=== PATIENT | female | born 1950 | race Caucasian/White ===

== ENCOUNTER 2017-12-18 17:08 | Inpatient (IN) | payer MEDICARE, OTHER ==
[~2017-12-18] VITALS: Ht 157.5 cm; Wt 66.0 kg
[2017-12-18 17:16] VITALS: BP 163/125; PULSE 77; RESP 22; TEMP 98.2; O2SAT 97
[2017-12-18] MEDS ORDERED: SODIUM CHLOR 0.9% 1000 ML INJ 1,000 ML IV ONE (18:00)
--- NOTE | 2017-12-18 18:00 | PD ---
HPI Chief Complaint: Cold / Flu Symptoms Time Seen by Provider: 17:27 Travel History International Travel<30 days: No Contact w/Intl Traveler<30days: No Traveled to known affect area: No History of Present Illness HPI Patient is a 67-year-old female with history of multiple sclerosis, hypertension , diabetes, hyperlipidemia, nicotine dependence, presents the emergency room for evaluation of cough, chills, shortness of breath with MS exacerbation. Patient reports that for the past 11 days, she has had a productive cough with thick white mucus. Denies any fevers. Patient reports that she has been having intermittent chills as well as shortness of breath with her coughing. Patient reports that since the onset of her symptoms, she has been feeling weak , reports that at baseline, she is a walker to walk. Patient reports that she is unable to ambulate with a walker and has to use a wheelchair at this time. Patient reports that she did fall multiple times at home due to her weakness. Patient denies any trauma to her head or neck, denies any loss of consciousness. Patient reports that she has been having problems with swallowing. Patient did follow-up with Dr. Fish today and was instructed to go to the emergency room for evaluation of her symptoms as well as MS exacerbation secondary to infection. Patient is currently taking Rebif for her MS exacerbation. Patient's neurologist: Dr. Leigh [facility] Past Medical History Narrative Medical Past medical history significant for essential hypertension, prediabetes, nicotine dependence, atrophy of thyroid, major depressive disorder, multiple sclerosis, spondylolysis with radiculopathy thoracic region, menopause, hyperlipidemia, solitary pulmonary nodule ?: Unknown Past Surgical History Narrative Surgical Past surgical history significant for colonoscopy, breast reduction, breast augmentation, tonsillectomy Family History Family Breast Cancer: Yes Social History Alcohol Use: No Tobacco Use: No Substance Use: No Allergies-Medications (Allergen,Severity, Reaction): Coded Allergies: No Known Allergies (Unverified , 12/18/17) Review of Systems General / Constitutional: Positive: Chills, No: Fever Eyes: No: Visual changes HENT: No: Headaches Cardiovascular: No: Chest Pain or Discomfort Respiratory: Positive: Cough, Shortness of Breath Gastrointestinal: No: Abdominal Pain Genitourinary: No: Dysuria Musculoskeletal: Positive: Weakness, No: Pain Skin: No Rash Neurologic: Positive: Weakness Psychiatric: No: Depression Endocrine: No: Polydipsia Hematologic/Lymphatic: No: Easy Bruising Physical Exam Narrative GENERAL: Moderate distress SKIN: Focused skin assessment warm/dry. HEAD: Atraumatic. Normocephalic. EYES: Pupils equal and round. No scleral icterus. No injection or drainage. ENT: No nasal bleeding or discharge. Mucous membranes pink and moist. NECK: Trachea midline. No JVD. CARDIOVASCULAR: Regular rate and rhythm. No murmur appreciated. RESPIRATORY: No accessory muscle use. Clear to auscultation. Breath sounds equal bilaterally. GASTROINTESTINAL: Abdomen soft, non-tender, nondistended. Hepatic and splenic margins not palpable. MUSCULOSKELETAL: No obvious deformities. No clubbing. No cyanosis. No edema. Patient with weakness to the lower extremities NEUROLOGICAL: Awake and alert. No obvious cranial nerve deficits. Normal speech. PSYCHIATRIC: Appropriate mood and affect; insight and judgment normal. Data Data Last Documented VS Vital Signs Date Time Temp Pulse Resp B/P (MAP) Pulse Ox O2 Delivery O2 Flow Rate FiO2 12/18/17 18:08 18 97 Room Air 12/18/17 18:08 66 148/101 (117) 12/18/17 17:16 98.2 Orders Orders Electrocardiogram (12/18/17 17:47) Complete Blood Count With Diff (12/18/17 17:47) Comprehensive Metabolic Panel (12/18/17 17:47) Influenzae A/B Antigen (12/18/17 17:47) Urinalysis - C+S If Indicated (12/18/17 17:47) Blood Culture (12/18/17 17:47) Chest, Single Ap (12/18/17 17:47) Ecg Monitoring (12/18/17 17:47) Iv Access Insert/Monitor (12/18/17 17:47) Oximetry (12/18/17 17:47) Sodium Chlor 0.9% 1000 Ml Inj (Ns 1000 M (12/18/17 18:00) Methylprednisolone So Succ Inj (Solumedr (12/18/17 18:45) Consult Neurology (12/18/17 ) Mri Brain W&W/O Contrast (12/18/17 ) (Hub Use Only)Inp Phy Cons/Ref (12/18/17 ) Admit Order (Ed Use Only) (12/18/17 18:59) Labs Laboratory Tests Test 12/18/17 17:50 12/18/17 18:00 White Blood Count 7.5 TH/MM3 Red Blood Count 4.44 MIL/MM3 Hemoglobin 13.3 GM/DL Hematocrit 40.0 % Mean Corpuscular Volume 90.1 FL Mean Corpuscular Hemoglobin 30.0 PG Mean Corpuscular Hemoglobin Concent 33.3 % Red Cell Distribution Width 13.5 % Platelet Count 178 TH/MM3 Mean Platelet Volume 10.0 FL Neutrophils (%) (Auto) 73.1 % Lymphocytes (%) (Auto) 16.8 % Monocytes (%) (Auto) 7.7 % Eosinophils (%) (Auto) 1.4 % Basophils (%) (Auto) 1.0 % Neutrophils # (Auto) 5.4 TH/MM3 Lymphocytes # (Auto) 1.3 TH/MM3 Monocytes # (Auto) 0.6 TH/MM3 Eosinophils # (Auto) 0.1 TH/MM3 Basophils # (Auto) 0.1 TH/MM3 CBC Comment DIFF FINAL Differential Comment Blood Urea Nitrogen 27 MG/DL Creatinine 0.83 MG/DL Random Glucose 75 MG/DL Total Protein 7.1 GM/DL Albumin 3.5 GM/DL Calcium Level 9.1 MG/DL Alkaline Phosphatase 90 U/L Aspartate Amino Transf (AST/SGOT) 21 U/L Alanine Aminotransferase (ALT/SGPT) 28 U/L Total Bilirubin 0.4 MG/DL Sodium Level 144 MEQ/L Potassium Level 3.6 MEQ/L Chloride Level 107 MEQ/L Carbon Dioxide Level 26.9 MEQ/L Anion Gap 10 MEQ/L Estimat Glomerular Filtration Rate 68 ML/MIN Urine Color [place] Urine Turbidity CLEAR Urine pH 6.0 Urine Specific [place] 1.023 Urine Protein NEG mg/dL Urine Glucose (UA) NEG mg/dL Urine Ketones TRACE mg/dL Urine Occult Blood NEG Urine Nitrite NEG Urine Bilirubin NEG Urine Urobilinogen 2.0 mg/dL Urine Leukocyte Esterase NEG Urine WBC 1 /hpf Urine Hyaline Casts 3 /lpf Urine Mucus FEW /lpf Microscopic Urinalysis Comment CULT NOT INDICATED MDM Medical Decision Making Medical Screen Exam Complete: Yes Emergency Medical Condition: Yes Medical Record Reviewed: Yes Interpretation(s) Vital Signs Date Time Temp Pulse Resp B/P (MAP) Pulse Ox O2 Delivery O2 Flow Rate FiO2 12/18/17 17:16 98.2 77 22 163/125 (138) 97 Differential Diagnosis Pneumonia, bronchitis, MS exacerbation, influenza, viral syndrome, electrolyte abnormality Narrative Course During the course of the patients emergency department visit, the patients history, examination, and differential diagnosis were reviewed with the patient. The patient was placed on a truck caterer with oximetry and frequent blood pressure monitoring. The patient had an IV access obtained and blood work sent for analysis. The patient was initially provided IV fluids. A call was made to Dr. Leigh, patient's neurologist. He is unavailable, call made to a neurologist applications project manager. The patients laboratory studies were reviewed and remarkable for CBC & BMP Diagram 12/18/17 17:50 Total Protein 7.1, Albumin 3.5, Calcium Level 9.1, Alkaline Phosphatase 90, Aspartate Amino Transf (AST/SGOT) 21, Alanine Aminotransferase (ALT/SGPT) 28, Total Bilirubin 0.4 Radiology studies were reviewed and remarkable for Last Impressions Chest X-Ray 12/18/17 2207 Signed Impressions: CONCLUSION: Advanced thoracic scoliosis. No acute cardiopulmonary findings. Case reviewed with Dr. Andre, recommends IV Solu-Medrol 250 mg every 6 hours, requests brain MRI with and without IV contrast. Patient will be admitted to the hospital at this time for MS exacerbation with bronchitis. case reviewed with Dr. Toscano who accepts pt to her service Diagnosis Primary Impression: Multiple sclerosis exacerbation Admitting Information Admitting Physician Requests: Admit Loli Pool DO Dec 18, 2017 18:00
[2017-12-18 18:07] VITALS: O2SAT 98
[2017-12-18 18:08] VITALS: BP 148/101; PULSE 66; RESP 18; O2SAT 97
[2017-12-18 18:18] LABS: AUTOMATED NEUTROPHIL # 5.4 TH/MM3 (1.8-7.7); BASOPHIL # 0.1 TH/MM3 (0-0.2); EOSINOPHIL # 0.1 TH/MM3 (0-0.4); EOSINOPHIL % 1.4 % (0.0-4.0); HEMOGLOBIN 13.3 GM/DL (11.6-15.3); LYMPH % 16.8 % (9.0-44.0); LYMPHOCYTE # 1.3 TH/MM3 (1.0-4.8); MEAN CELL VOLUME 90.1 FL (80.0-100.0); MEAN CORPUSCULAR HGB CONC 33.3 % (32.0-36.0); MONO % 7.7 % (0.0-8.0); MONOCYTE # 0.6 TH/MM3 (0-0.9); NEUT % 73.1 % (16.0-70.0); PLATELET COUNT 178 TH/MM3 (150-450); RED BLOOD COUNT 4.44 MIL/MM3 (4.00-5.30); RED CELL DISTRIBUTION WIDTH 13.5 % (11.6-17.2); WHITE BLOOD COUNT 7.5 TH/MM3 (4.0-11.0)
--- NOTE | 2017-12-18 18:36 | RADRPT ---
EXAM DATE: 12/18/2017 6:29 PM EDT AGE/SEX: 67 years / Female INDICATIONS: Cough. CLINICAL DATA: This is the patient's initial encounter. Patient reports that signs and symptoms have been present for 2 weeks and indicates a pain score of 2/10. MEDICAL/SURGICAL HISTORY: Multiple sclerosis. None. COMPARISON: No prior exams available for comparison. FINDINGS: The cardiac and mediastinal contours are within normal limits. The lungs are clear. There is a rotato ry scoliosis of the thoracic spine. CONCLUSION: Advanced thoracic scoliosis. No acute cardiopulmonary findings. Electronically signed by: Polo Bates MD 12/18/2017 6:34 PM EDT
[2017-12-18 18:41] LABS: ALT (GPT) 28 U/L (10-53)
[2017-12-18 18:42] LABS: ALBUMIN 3.5 GM/DL (3.4-5.0); AST (GOT) 21 U/L (15-37); BICARBONATE 26.9 MEQ/L (21.0-32.0); BLOOD UREA NITROGEN 27 MG/DL (7-18); CALCIUM 9.1 MG/DL (8.5-10.1); CHLORIDE 107 MEQ/L (98-107); CREATININE 0.83 MG/DL (0.50-1.00); GLOMERULAR FILTRATION RATE 68 ML/MIN (>89); GLUCOSE,RANDOM 75 MG/DL (74-106); SODIUM (NA) 144 MEQ/L (136-145)
[2017-12-18 18:43] LABS: ALKALINE PHOSPHATASE 90 U/L (45-117); TOTAL BILIRUBIN ADULT 0.4 MG/DL (0.2-1.0); TOTAL PROTEIN 7.1 GM/DL (6.4-8.2)
[2017-12-18 18:44] LABS: BILIRUBIN, URINE NEG (NEG); BLOOD, URINE NEG (NEG); GLUCOSE,URINE NEG (NEG); HYALINE CAST, URINE 3 /lpf (RARE); KETONE, URINE TRACE mg/dL (NEG); MUCUS URINE FEW /lpf (OCC); NITRITE,URINE NEG (NEG); URINE COLOR Amber (YELLW/STRAW); URINE LEUKOCYTE ESTERASE NEG (NEG)
[2017-12-18] MEDS ORDERED: methylPREDNISolone SOD SUCC 125 MG/2 ML VIAL IV PUSH ONE (18:45)
[2017-12-18] MEDS ORDERED: GADODIAMIDE PF 287 MG/ML 5 ML VIAL (for RAD MRI) IVCONTRAST ONE (19:38)
--- NOTE | 2017-12-18 20:18 | RADRPT ---
EXAM DATE: 12/18/2017 7:53 PM EDT AGE/SEX: 67 years / Female INDICATIONS: . MS exacerbation, possible mass. CLINICAL DATA: This is the patient's initial encounter. Patient reports that signs and symptoms have been present for 1 week and indicates a pain score of 4/10. MEDICAL/SURGICAL HISTORY: Multiple sclerosis. Hypertension. Tonsillectomy. COMPARISON: No prior exams available for comparison. TECHNIQUE: Multiplanar, multisequence examination of the brain was performed without and with 13 ml O mniscan (gadodiamide) contrast as a single exam dose. FINDINGS: Cerebrum: The ventricles are normal for age. No evidence of midline shift, mass lesion, hemorrhage or acute infarction. There are punctate areas of old lacunar infarct seen in the white matter adjacen t to the ventricular system bilaterally. No extraaxial fluid collections are seen. The pituitary gl and and suprasellar cistern are normal in configuration. White Matter: There is increased T2 signal in the periventricular white matter consistent with the p atient's known diagnosis of MS. There are punctate areas of old lacunar infarct within the white vijay er probably representing old plaques as well. No enhancing lesion is seen. No findings to indicate ac donna cortical infarction are present. Posterior Fossa: The cerebellum and brainstem are intact. The 4th ventricle is midline. The cerebel lopontine angle is unremarkable. The cerebellar tonsils are normal in position. Diffusion Imaging: No focal areas of restricted diffusion are seen. No evidence of acute infarction . Extracranial: The visualized portions of the orbits and paranasal sinuses are unremarkable. Post Contrast: No abnormal areas of parenchymal or dural enhancement. No evidence of blood-brain ba rrier breakdown. CONCLUSION: 1. T2 signal in the periventricular white matter consistent with the patient's known diagnosis of MS . 2. No enhancing plaques identified. No findings to indicate acute infarct are present. 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 Electronically signed by: Polo Bates MD 12/18/2017 8:17 PM EDT
--- NOTE | 2017-12-18 20:26 | HHI.HP ---
HPI Service [facility] Primary Care Physician Itz Fish MD Admission Diagnosis MS Exacerbation Diagnoses: Travel History International Travel<30 Days: No Contact w/Intl Traveler <30 Da: No Traveled to Known Affected Are: No History of Present Illness 67-year-old female with a past medical history significant for multiple sclerosis presents the emergency department for the evaluation of a cough 11 days. The patient reports that approximately 11 days ago she started having a nonproductive cough with intermittent chills and sweats. She was seen by her primary care provider who prescribed her cough syrup which she states did not work and a Z-Conrad which she completed. The patient started noticing increasing, sudden onset weakness approximately 1-1/2 weeks ago. She reports that she has fallen 4 times in the past 1-1/2 weeks. She states her weakness is steadily worsening and she is no longer able to walk with her walker and is now forced to use a wheelchair. She denies any chest pain or shortness of breath. No abdominal pain. No nausea/vomiting/diarrhea. No lateralizing signs/symptoms. Review of Systems Except as stated in HPI: all other systems reviewed are Neg Past Family Social History Past Medical History Multiple sclerosis Past Surgical History Breast augmentation Breast implant removal Tonsillectomy Allergies: Coded Allergies: No Known Allergies (Unverified , 12/18/17) Family History Father with diabetes mellitus and coronary artery disease Social History Denies tobacco and illicit drugs. Occasional alcohol. Physical Exam Vital Signs Vital Signs Date Time Temp Pulse Resp B/P (MAP) Pulse Ox O2 Delivery O2 Flow Rate FiO2 12/18/17 18:08 18 97 Room Air 12/18/17 18:08 66 18 148/101 (117) 97 Room Air 12/18/17 18:07 98 Room Air 12/18/17 17:16 98.2 77 22 163/125 (138) 97 Physical Exam GENERAL: female lying in bed SKIN: No rashes, ecchymoses or lesions. Cool and dry. HEAD: Atraumatic. Normocephalic. No temporal or scalp tenderness. EYES: Pupils equal round and reactive. Extraocular motions intact. No scleral icterus. No injection or drainage. ENT: Nose without bleeding, purulent drainage or septal hematoma. Throat without erythema, tonsillar hypertrophy or exudate. Uvula midline. Airway patent. NECK: Trachea midline. No JVD or lymphadenopathy. Supple, nontender, no meningeal signs. CARDIOVASCULAR: Regular rate and rhythm without murmurs, gallops, or rubs. RESPIRATORY: Clear to auscultation. Breath sounds equal bilaterally. No wheezes , rales, or rhonchi. GASTROINTESTINAL: Abdomen soft, non-tender, nondistended. No hepato-splenomegaly , or palpable masses. No guarding. MUSCULOSKELETAL: Extremities without clubbing, cyanosis, or edema. No joint tenderness, effusion, or edema noted. No calf tenderness. NEUROLOGICAL: Awake and alert. Cranial nerves II through XII intact. Normal speech. Hand oracle bpm developer and upper extremity strength 5/5. Right lower extremity strength 3/5, unable to lift left lower extremity off the bed. Laboratory Laboratory Tests Test 12/18/17 17:50 12/18/17 18:00 White Blood Count 7.5 Red Blood Count 4.44 Hemoglobin 13.3 Hematocrit 40.0 Mean Corpuscular Volume 90.1 Mean Corpuscular Hemoglobin 30.0 Mean Corpuscular Hemoglobin Concent 33.3 Red Cell Distribution Width 13.5 Platelet Count 178 Mean Platelet Volume 10.0 Neutrophils (%) (Auto) 73.1 Lymphocytes (%) (Auto) 16.8 Monocytes (%) (Auto) 7.7 Eosinophils (%) (Auto) 1.4 Basophils (%) (Auto) 1.0 Neutrophils # (Auto) 5.4 Lymphocytes # (Auto) 1.3 Monocytes # (Auto) 0.6 Eosinophils # (Auto) 0.1 Basophils # (Auto) 0.1 CBC Comment DIFF FINAL Differential Comment Blood Urea Nitrogen 27 Creatinine 0.83 Random Glucose 75 Total Protein 7.1 Albumin 3.5 Calcium Level 9.1 Alkaline Phosphatase 90 Aspartate Amino Transf (AST/SGOT) 21 Alanine Aminotransferase (ALT/SGPT) 28 Total Bilirubin 0.4 Sodium Level 144 Potassium Level 3.6 Chloride Level 107 Carbon Dioxide Level 26.9 Anion Gap 10 Estimat Glomerular Filtration Rate 68 Urine Color [place] Urine Turbidity CLEAR Urine pH 6.0 Urine Specific [place] 1.023 Urine Protein NEG Urine Glucose (UA) NEG Urine Ketones TRACE Urine Occult Blood NEG Urine Nitrite NEG Urine Bilirubin NEG Urine Urobilinogen 2.0 Urine Leukocyte Esterase NEG Urine WBC 1 Urine Hyaline Casts 3 Urine Mucus FEW Microscopic Urinalysis Comment CULT NOT INDICATED Date/Time Source Procedure Growth Status 12/18/17 17:55 Blood Peripheral Aerobic Blood Culture Pending Received 12/18/17 17:55 Blood Peripheral Anaerobic Blood Culture Pending Received 12/18/17 17:50 Nasal Washing Influenza Types A,B Antigen (ELIN) - Final NEGATIVE FOR FLU A AND B ANTIGEN.... Complete Result Diagram: 12/18/17 17512/18/17 175 Caprini VTE Risk Assessment Caprini VTE Risk Assessment: Mod/High Risk (score >= 2) Caprini Risk Assessment Model Point Value = 1 Point Value = 2 Point Value = 3 Point Value = 5 Age 41-60 Minor surgery BMI > 25 kg/m2 Swollen legs Varicose veins or History of unexplained or recurrent spontaneous Oral contraceptives or hormone replacement Sepsis (< 1 month) Serious lung disease, including pneumonia (< 1 month) Abnormal pulmonary function Acute myocardial infarction Congestive heart failure (< 1 month) History of inflammatory bowel disease Medical patient at bed rest Age 61-74 Arthroscopic surgery Major open surgery (> 45 min) Laparoscopic surgery (> 45 min) Malignancy Confined to bed (> 72 hours) Immobilizing plaster cast Central venous access Age >= 75 History of VTE Family history of VTE Factor V Leiden Prothrombin [id number] Lupus anticoagulant Anticardiolipin antibodies Elevated serum homocysteine Heparin-induced thrombocytopenia Other congenital or acquired thrombophilia Stroke (< 1 month) Elective arthroplasty Hip, pelvis, or leg fracture Acute spinal cord injury (< 1 month) Prophylaxis Regimen Total Risk Factor Score Risk Level Prophylaxis Regimen 0-1 Low Early ambulation 2 Moderate Order ONE of the following: *Sequential Compression Device (SCD) *Heparin 5000 units SQ BID 3-4 Higher Order ONE of the following medications: *Heparin 5000 units SQ TID *Enoxaparin/Lovenox 40 mg SQ daily (WT < 150 kg, CrCl > 30 mL/min) *Enoxaparin/Lovenox 30 mg SQ daily (WT < 150 kg, CrCl > 10-29 mL/min) *Enoxaparin/Lovenox 30 mg SQ BID (WT < 150 kg, CrCl > 30 mL/min) AND/OR *Sequential Compression Device (SCD) 5 or more Highest Order ONE of the following medications: *Heparin 5000 units SQ TID (Preferred with Epidurals) *Enoxaparin/Lovenox 40 mg SQ daily (WT < 150 kg, CrCl > 30 mL/min) *Enoxaparin/Lovenox 30 mg SQ daily (WT < 150 kg, CrCl > 10-29 mL/min) *Enoxaparin/Lovenox 30 mg SQ BID (WT < 150 kg, CrCl > 30 mL/min) AND *Sequential Compression Device (SCD) Assessment and Plan Assessment and Plan Assessment/plan: 1. MS exacerbation Patient with sudden onset increasing weakness Neurology consulted, appreciate recommendations Solu-Medrol 250 mg every 6 hours per neurology recommendations MRI pending 2. Cough Patient without leukocytosis Suspect viral in origin Chest x-ray without acute process, personally reviewed FEN Heart healthy diet Electrolytes: Monitor and replete as needed Heparin Physician Certification 2 Midnight Certification Type: Admission for Inpatient Services Order for Inpatient Services The services are ordered in accordance with Medicare regulations or non- Medicare payer requirements, as applicable. In the case of services not specified as inpatient-only, they are appropriately provided as inpatient services in accordance with the 2-midnight benchmark. Estimated LOS (days): 2 2 days is the estimated time the patient will need to remain in the hospital, assuming treatment plan goals are met and no additional complications. Post-Hospital Plan: Not yet determined Loli Toscano MD Dec 18, 2017 20:25
[2017-12-18] MEDS ORDERED: ONDANSETRON HCL 4 MG/2 ML VIAL IVP PRN (20:30)
[2017-12-18] MEDS ORDERED: SODIUM CHLORIDE 0.9% FLUSH 10 ML FLUSH IV FLUSH PRN (20:30)
[2017-12-18] MEDS ORDERED: MAGNESIUM HYDROXIDE SUSP 30 ML CUP PO PRN (20:30)
[2017-12-18] MEDS ORDERED: ACETAMINOPHEN 325 MG TAB PO PRN (20:30)
[2017-12-18] MEDS ORDERED: LACTULOSE SYRUP 20 GM/30 ML CUP PO PRN (20:30)
[2017-12-18] MEDS ORDERED: NALOXONE HCL 0.4 MG/ML AMP IV PUSH PRN (20:30)
[2017-12-18] MEDS ORDERED: SENNOSIDES 8.6 MG TAB PO PRN (20:30)
[2017-12-18] MEDS ORDERED: BISACODYL 10 MG SUPP RECTAL PRN (20:30)
[2017-12-18] MEDS: SODIUM CHLORIDE 0.9% FLUSH 10 ML FLUSH IV FLUSH SCH (21:09)
[2017-12-18] MEDS: DOCUSATE SODIUM 50 MG/SENNA 8.6 MG TAB PO SCH (21:10)
[2017-12-18] MEDS: HEPARIN SODIUM - SQ 10,000 UNITS/ML VIAL SQ SCH (21:10)
[2017-12-18] MEDS: methylPREDNISolone SOD SUCC 125 MG/2 ML VIAL IV SCH ×2 (21:11→23:16)
[2017-12-19] VITALS: BP 128/81; PULSE 77; RESP 17; TEMP 98.2; O2SAT 97
[2017-12-19 04:30] VITALS: BP 172/80; PULSE 74; RESP 17; TEMP 97.6; O2SAT 97
[2017-12-19] MEDS: methylPREDNISolone SOD SUCC 125 MG/2 ML VIAL IV SCH ×3 (05:48→17:47)
[2017-12-19 08:00] VITALS: BP 187/89; PULSE 73; RESP 18; TEMP 97.5; O2SAT 97
[2017-12-19 08:30] LABS: AUTOMATED NEUTROPHIL # 5.1 TH/MM3 (1.8-7.7); BASOPHIL % 0.2 % (0.0-2.0); HEMATOCRIT 38.4 % (35.0-46.0); HEMOGLOBIN 12.8 GM/DL (11.6-15.3); LYMPH % 14.5 % (9.0-44.0); LYMPHOCYTE # 0.9 TH/MM3 (1.0-4.8); MEAN CELL VOLUME 89.2 FL (80.0-100.0); MEAN CORPUSCULAR HEMOGLOBIN 29.7 PG (27.0-34.0); MEAN CORPUSCULAR HGB CONC 33.3 % (32.0-36.0); MEAN PLATELET VOLUME 10.5 FL (7.0-11.0); MONO % 0.6 % (0.0-8.0); NEUT % 84.7 % (16.0-70.0); PLATELET COUNT 159 TH/MM3 (150-450); RED CELL DISTRIBUTION WIDTH 13.2 % (11.6-17.2)
[2017-12-19 08:53] LABS: BICARBONATE 22.7 MEQ/L (21.0-32.0); CALCIUM 8.8 MG/DL (8.5-10.1); CREATININE 0.73 MG/DL (0.50-1.00)
[2017-12-19] MEDS: DOCUSATE SODIUM 50 MG/SENNA 8.6 MG TAB PO SCH ×2 (09:12→21:11)
[2017-12-19] MEDS: HEPARIN SODIUM - SQ 10,000 UNITS/ML VIAL SQ SCH ×2 (09:13→21:10)
[2017-12-19] MEDS: SODIUM CHLORIDE 0.9% FLUSH 10 ML FLUSH IV FLUSH SCH ×2 (09:16→21:11)
--- NOTE | 2017-12-19 11:01 | MB ---
cc: Cecily Chaney MD DATE: 12/19/2017 REASON FOR CONSULTATION: MS Exacerbation. HISTORY OF PRESENT ILLNESS: This is a very pleasant 67-year-old woman, patient of Dr. Leigh, as well as Dr. Fish, her primary care with a history of MS for a number of years currently on Rebif therapy. She developed some type of cough, started having some chills and sweats and started noticing that she was having more weakness in the legs for the last week and a half had fallen. Uses a walker, but is having more trouble and had to go to a wheelchair. My associate, Dr. Andre, was called last night and recommended starting her on Solu-Medrol 250 mg q. 6 hours. She has done fairly well in the past she states with the Solu-Medrol. PAST MEDICAL HISTORY: As stated. PAST SURGICAL HISTORY: Tonsillectomy, breast augmentation and implant removal. ALLERGIES: NONE REPORTED. FAMILY HISTORY: Diabetes and heart disease. SOCIAL HISTORY: . Occasional alcohol. No drugs. PHYSICAL EXAMINATION: VITAL SIGNS: Temperature 97.5, pulse 73, respiratory rate 18, blood pressure is elevated at 187/89 this morning, saturating 97 percent. NECK: Supple. HEART: Regular. NEUROLOGIC: She is awake, alert, fluent. Pupils are reactive. No afferent pupillary defect. Extraocular muscles are normal. Visual dubois are full. Face symmetrical. Tongue midline. Normal speech. Motor molina, upper extremities slightly weaker in the appeals court associate justice bilaterally, but proximally intact. Both extremities, the right lower extremity, she can lift to antigravity. She is at best 3+ to 4-/5 on the right, 3 on the left. No clonus. Both toes are upgoing. Sensory is intact. Brisk reflexes. No Mihir sign. Cerebellar normal. Gait is withheld at this time. LABORATORY DATA: Reviewed. Her CBC is really unremarkable. Chemistries: Potassium 3.4, GFR 79, glucose 155. Urine, no culture is indicated. Chest x-ray: No acute pulmonary findings. She had MRI of the brain with and without contrast shows periventricular white matter disease consistent with MS diagnosis. No enhancing plaques. No acute stroke. Old punctate lacune in the white matter bilaterally periventricularly. IMPRESSION: Probable MS exacerbation may be viral etiology something not exacerbated. As far as or upper respiratory infection, may caused an exacerbation; however, given her symptoms, I agree to go ahead and continue Solu-Medrol for a course of 3 days, have PT, OT assessed her and certainly let her continue her Rebif therapy. She has the medication with her and there is no contraindication that she cannot use it while she is getting steroids and possibly needing to go to rehabilitation is certainly a consideration given her weakness. Continue current care. Thank you for allowing me to participate in her care. Cecily Chaney MD DF/DL , 10:31 AM , 10:59 AM
[2017-12-19 12:00] VITALS: BP 124/78; PULSE 75; RESP 18; TEMP 98; O2SAT 94
[2017-12-19] MEDS ORDERED: PANTOPRAZOLE SOD 40 MG DELAYED RELEASE TAB PO ONE (13:45)
--- NOTE | 2017-12-19 13:52 | HHI.PR ---
Subjective Remarks 67-year-old female with a past medical history significant for multiple sclerosis presents the emergency department for the evaluation of a cough 11 days. The patient reports that approximately 11 days ago she started having a nonproductive cough with intermittent chills and sweats. She was seen by her primary care provider who prescribed her cough syrup which she states did not work and a Z-Conrad which she completed. The patient started noticing increasing, sudden onset weakness approximately 1-1/2 weeks ago. She reports that she has fallen 4 times in the past 1-1/2 weeks. She states her weakness is steadily worsening and she is no longer able to walk with her walker and is now forced to use a wheelchair. She denies any chest pain or shortness of breath. No abdominal pain. No nausea/vomiting/diarrhea. No lateralizing signs/symptoms. 12-[address] TERRELL HAS BEEN GIVEN IV STEROIDS DW RN AND PT AND CM PT AND OT AM LABS Objective Vitals Vital Signs Date Time Temp Pulse Resp B/P (MAP) Pulse Ox O2 Delivery O2 Flow Rate FiO2 12/19/17 08:00 97.5 73 18 187/89 (121) 97 12/19/17 04:30 97.6 74 17 172/80 (110) 97 12/19/17 00:00 98.2 77 17 128/81 (97) 97 12/18/17 22:53 12/18/17 18:08 18 97 Room Air 12/18/17 18:08 66 18 148/101 (117) 97 Room Air 12/18/17 18:07 98 Room Air 12/18/17 17:16 98.2 77 22 163/125 (138) 97 I/O 12/18/17 12/18/17 12/18/17 12/19/17 12/19/17 12/19/17 07:00 15:00 23:00 07:00 15:00 23:00 Intake Total 1000 ml 360 ml Balance 1000 ml 360 ml Intake Oral 360 ml IV Total 1000 ml # Voids 3 # Bowel Movements 0 Result Diagram: 12/19/17 0543 12/19/17 0543 Other Results Laboratory Tests Test 12/18/17 17:50 12/18/17 18:00 12/19/17 05:43 White Blood Count 7.5 TH/MM3 6.0 TH/MM3 Red Blood Count 4.44 MIL/MM3 4.30 MIL/MM3 Hemoglobin 13.3 GM/DL 12.8 GM/DL Hematocrit 40.0 % 38.4 % Mean Corpuscular Volume 90.1 FL 89.2 FL Mean Corpuscular Hemoglobin 30.0 PG 29.7 PG Mean Corpuscular Hemoglobin Concent 33.3 % 33.3 % Red Cell Distribution Width 13.5 % 13.2 % Platelet Count 178 TH/MM3 159 TH/MM3 Mean Platelet Volume 10.0 FL 10.5 FL Neutrophils (%) (Auto) 73.1 % 84.7 % Lymphocytes (%) (Auto) 16.8 % 14.5 % Monocytes (%) (Auto) 7.7 % 0.6 % Eosinophils (%) (Auto) 1.4 % 0.0 % Basophils (%) (Auto) 1.0 % 0.2 % Neutrophils # (Auto) 5.4 TH/MM3 5.1 TH/MM3 Lymphocytes # (Auto) 1.3 TH/MM3 0.9 TH/MM3 Monocytes # (Auto) 0.6 TH/MM3 0.0 TH/MM3 Eosinophils # (Auto) 0.1 TH/MM3 0.0 TH/MM3 Basophils # (Auto) 0.1 TH/MM3 0.0 TH/MM3 CBC Comment DIFF FINAL DIFF FINAL Differential Comment Blood Urea Nitrogen 27 MG/DL 23 MG/DL Creatinine 0.83 MG/DL 0.73 MG/DL Random Glucose 75 MG/DL 155 MG/DL Total Protein 7.1 GM/DL Albumin 3.5 GM/DL Calcium Level 9.1 MG/DL 8.8 MG/DL Alkaline Phosphatase 90 U/L Aspartate Amino Transf (AST/SGOT) 21 U/L Alanine Aminotransferase (ALT/SGPT) 28 U/L Total Bilirubin 0.4 MG/DL Sodium Level 144 MEQ/L 141 MEQ/L Potassium Level 3.6 MEQ/L 3.4 MEQ/L Chloride Level 107 MEQ/L 107 MEQ/L Carbon Dioxide Level 26.9 MEQ/L 22.7 MEQ/L Anion Gap 10 MEQ/L 11 MEQ/L Estimat Glomerular Filtration Rate 68 ML/MIN 79 ML/MIN Urine Color [place] Urine Turbidity CLEAR Urine pH 6.0 Urine Specific [place] 1.023 Urine Protein NEG mg/dL Urine Glucose (UA) NEG mg/dL Urine Ketones TRACE mg/dL Urine Occult Blood NEG Urine Nitrite NEG Urine Bilirubin NEG Urine Urobilinogen 2.0 mg/dL Urine Leukocyte Esterase NEG Urine WBC 1 /hpf Urine Hyaline Casts 3 /lpf Urine Mucus FEW /lpf Microscopic Urinalysis Comment CULT NOT INDICATED Imaging Last Impressions Chest X-Ray 12/18/17 1747 Signed Impressions: CONCLUSION: Advanced thoracic scoliosis. No acute cardiopulmonary findings. Brain MRI 12/18/17 0000 Signed Impressions: CONCLUSION: 1. T2 signal in the periventricular white matter consistent with the patient's known diagnosis of MS. 2. No enhancing plaques identified. No findings to indicate acute infarct are present. 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 Objective Remarks GENERAL: female lying in bed SKIN: No rashes, ecchymoses or lesions. Cool and dry. HEAD: Atraumatic. Normocephalic. No temporal or scalp tenderness. EYES: Pupils equal round and reactive. Extraocular motions intact. No scleral icterus. No injection or drainage. ENT: Nose without bleeding, purulent drainage or septal hematoma. Throat without erythema, tonsillar hypertrophy or exudate. Uvula midline. Airway patent. NECK: Trachea midline. No JVD or lymphadenopathy. Supple, nontender, no meningeal signs. CARDIOVASCULAR: Regular rate and rhythm without murmurs, gallops, or rubs. RESPIRATORY: Clear to auscultation. Breath sounds equal bilaterally. No wheezes , rales, or rhonchi. GASTROINTESTINAL: Abdomen soft, non-tender, nondistended. No hepato-splenomegaly , or palpable masses. No guarding. MUSCULOSKELETAL: Extremities without clubbing, cyanosis, or edema. No joint tenderness, effusion, or edema noted. No calf tenderness. NEUROLOGICAL: Awake and alert. Cranial nerves II through XII intact. Normal speech. Hand assisted living nursing director and upper extremity strength 5/5. Right lower extremity strength 3/5, unable to lift left lower extremity off the bed. Insight and judgment is good Mood behaviors appropriate Medications and IVs Current Medications Sodium Chloride 1,000 ml @ 999 mls/hr BOLUS ONCE IV Last administered on 12/18at 18:50; Start 12/18/17 at 18:00; Stop 12/18/17 at 19:00; Status DC Methylprednisolone Sodium Succinate (SoluMEDROL INJ) 250 mg ONCE ONCE IV PUSH Last administered on 12/18/17at 18:50; Start 12/18/17 at 18:45; Stop 12/18/17 at 18:46; Status DC Gadodiamide (Omniscan Pf Inj) 13 ml STK-MED ONCE IVCONTRAST Last administered on 12/18/17at 19:39; Start 12/18/17 at 19:38; Stop 12/18/17 at 19:39; Status DC Methylprednisolone Sodium Succinate (SoluMEDROL INJ) 250 mg Q6HR IV Last administered on 12/19/17at 13:28; Start 12/19/17 at 00:00 Sodium Chloride (NS Flush) 2 ml UNSCH PRN IV FLUSH FLUSH AFTER USING IV ACCESS ; Start 12/18/17 at 20:30 Sodium Chloride (NS Flush) 2 ml BID IV FLUSH Last administered on 12/19/17at 09: 16; Start 12/18/17 at 21:00 Acetaminophen (Tylenol) 650 mg Q4H PRN PO TEMP > 100.4 Last administered on at 09:12; Start 12/18/17 at 20:30 Ondansetron HCl (Zofran Inj) 4 mg Q6H PRN IVP NAUSEA OR VOMITING; Start at 20:30 Heparin Sodium (Porcine) (Heparin Inj) 5,000 units Q12HR SQ Last administered on 12/19/17at 09:13; Start 12/18/17 at 21:00 Naloxone HCl (Narcan Inj) 0.4 mg UNSCH PRN IV PUSH SEE LABEL COMMENTS; Start at 20:30 Senna/Docusate Sodium (Natali-Colace) 1 tab BID PO Last administered on at 09:12; Start 12/18/17 at 21:00 Magnesium Hydroxide (Milk Of Magnesia Liq) 30 ml Q12H PRN PO Mild constipation ; Start 12/18/17 at 20:30 Sennosides (Senokot) 17.2 mg Q12H PRN PO Moderate constipation; Start 12/18/17 at 20:30 Bisacodyl (Dulcolax Supp) 10 mg DAILY PRN RECTAL SEVERE CONSITIPATION; Start at 20:30 Lactulose (Lactulose Liq) 30 ml DAILY PRN PO SEVERE CONSITIPATION; Start at 20:30 A/P Assessment and Plan 1. MS exacerbation Patient with sudden onset increasing weakness Neurology consulted, appreciate recommendations Solu-Medrol 250 mg every 6 hours per neurology recommendations MRI pending 2. Cough Patient without leukocytosis Suspect viral in origin Chest x-ray without acute process, personally reviewed Hypothyroidism home medications Hypertension home medications anxiety and depression home medication GI and DVT prophylaxis FEN Heart healthy diet Electrolytes: Monitor and replete as needed Heparin Discharge Planning Pending neurology clearance Corey Alonzo DO Dec 19, 2017 13:52
[2017-12-19 16:00] VITALS: BP 181/77; PULSE 83; RESP 18; TEMP 98.1; O2SAT 96
[2017-12-19] MEDS: cloNIDine HCL 0.1 MG TAB PO PRN (18:33)
[2017-12-19 20:40] VITALS: BP 179/81; PULSE 84; RESP 17; TEMP 98.3; O2SAT 96
--- NOTE | 2017-12-19 20:50 | EKG ---
Date Performed: 12/18/2017 Time Performed: 20:22:01 PTAGE: 67 years EKG: Sinus rhythm LEFT VENTRICULAR HYPERTROPHY AND ST-T CHANGE ABNORMAL ECG NO PREVIOUS TRACING DOCTOR: Seth Tmaez Interpretating Date/Time 12/19/2017 20:49:06
[2017-12-19] MEDS: PANTOPRAZOLE SOD 40 MG DELAYED RELEASE TAB PO SCH (21:11)
[2017-12-20 00:45] VITALS: BP 156/84; PULSE 75; RESP 17; TEMP 98.5; O2SAT 95
[2017-12-20] MEDS: methylPREDNISolone SOD SUCC 125 MG/2 ML VIAL IV SCH ×3 (01:04→11:56)
[2017-12-20 06:16] LABS: AUTOMATED NEUTROPHIL # 6.4 TH/MM3 (1.8-7.7); BASOPHIL % 0.1 % (0.0-2.0); HEMOGLOBIN 12.3 GM/DL (11.6-15.3); LYMPH % 13.2 % (9.0-44.0); MEAN CELL VOLUME 88.2 FL (80.0-100.0); MEAN CORPUSCULAR HGB CONC 34.1 % (32.0-36.0); MEAN PLATELET VOLUME 10.3 FL (7.0-11.0); MONO % 2.5 % (0.0-8.0); MONOCYTE # 0.2 TH/MM3 (0-0.9); NEUT % 84.2 % (16.0-70.0); PLATELET COUNT 161 TH/MM3 (150-450); RED BLOOD COUNT 4.08 MIL/MM3 (4.00-5.30); RED CELL DISTRIBUTION WIDTH 13.3 % (11.6-17.2); WHITE BLOOD COUNT 7.6 TH/MM3 (4.0-11.0)
[2017-12-20 06:45] LABS: ALBUMIN 3.3 GM/DL (3.4-5.0); AST (GOT) 14 U/L (15-37); BICARBONATE 22.8 MEQ/L (21.0-32.0); BLOOD UREA NITROGEN 37 MG/DL (7-18); CALCIUM 8.8 MG/DL (8.5-10.1); CHLORIDE 106 MEQ/L (98-107); GLOMERULAR FILTRATION RATE 71 ML/MIN (>89); GLUCOSE,RANDOM 150 MG/DL (74-106); MAGNESIUM 2.6 MG/DL (1.5-2.5); SODIUM (NA) 141 MEQ/L (136-145)
[2017-12-20 07:10] LABS: ALKALINE PHOSPHATASE 73 U/L (45-117); ALT (GPT) 21 U/L (10-53); FREE T4 1.17 NG/DL (0.76-1.46); PHOSPHORUS 3.6 MG/DL (2.5-4.9); TOTAL BILIRUBIN ADULT 0.5 MG/DL (0.2-1.0); TOTAL PROTEIN 6.5 GM/DL (6.4-8.2)
[2017-12-20 08:00] VITALS: BP 200/91; PULSE 78; RESP 18; TEMP 97.1; O2SAT 94
[2017-12-20] MEDS: DOCUSATE SODIUM 50 MG/SENNA 8.6 MG TAB PO SCH (08:52)
[2017-12-20] MEDS: PANTOPRAZOLE SOD 40 MG DELAYED RELEASE TAB PO SCH (08:52)
[2017-12-20] MEDS: SODIUM CHLORIDE 0.9% FLUSH 10 ML FLUSH IV FLUSH SCH (08:53)
[2017-12-20] MEDS: cloNIDine HCL 0.1 MG TAB PO PRN (08:53)
[2017-12-20] MEDS: HEPARIN SODIUM - SQ 10,000 UNITS/ML VIAL SQ SCH (08:53)
--- NOTE | 2017-12-20 11:09 | HHI.DCPOC ---
Discharge Care Plan Diagnosis: (1) Multiple sclerosis exacerbation Goals to Promote Your Health * To prevent worsening of your condition and complications * To maintain your health at the optimal level Directions to Meet Your Goals Take your medications as prescribed Follow your dietary instruction Follow activity as directed Keep your appointments as scheduled Take your immunizations and boosters as scheduled If your symptoms worsen call your PCP, if no PCP go to Urgent Care Center or Emergency Room Smoking is Dangerous to Your Health. Avoid second hand smoke Call the 24-hour hour crisis hotline for domestic abuse at Zonia Looney Dec 20, 2017 11:09
[2017-12-20] MEDS ORDERED: SOLU125I IV (11:11)
[2017-12-20] MEDS ORDERED: PANT40TA3 PO (11:11)
[2017-12-20] MEDS ORDERED: BENZ100 PO (11:12)
[2017-12-20] MEDS ORDERED: BENZONATATE 100 MG CAP PO PRN (11:15)
--- NOTE | 2017-12-20 11:16 | HHI.DS ---
cc: Itz Fish MD Discharge Summary Admission Date Dec 18, 2017 at 19:01 Discharge Date: Dec 20, 2017 Admitting Diagnosis MS Exacerbation (1) Multiple sclerosis exacerbation ICD Code: G35 - Multiple sclerosis Status: Acute Procedures None Brief History - From Admission 67-year-old female with a past medical history significant for multiple sclerosis presents the emergency department for the evaluation of a cough 11 days. The patient reports that approximately 11 days ago she started having a nonproductive cough with intermittent chills and sweats. She was seen by her primary care provider who prescribed her cough syrup which she states did not work and a Z-Conrad which she completed. The patient started noticing increasing, sudden onset weakness approximately 1-1/2 weeks ago. She reports that she has fallen 4 times in the past 1-1/2 weeks. She states her weakness is steadily worsening and she is no longer able to walk with her walker and is now forced to use a wheelchair. She denies any chest pain or shortness of breath. No abdominal pain. No nausea/vomiting/diarrhea. No lateralizing signs/symptoms. CBC/BMP: 12/20/17 0507 12/20/17 0507 Significant Findings Laboratory Tests Test 12/18/17 17:50 12/18/17 18:00 12/19/17 05:43 12/20/17 05:07 Neutrophils (%) (Auto) 73.1 % (16.0-70.0) 84.7 % (16.0-70.0) 84.2 % (16.0-70.0) Blood Urea Nitrogen 27 MG/DL (7-18) 23 MG/DL (7-18) 37 MG/DL (7-18) Estimat Glomerular Filtration Rate 68 ML/MIN (>89) 79 ML/MIN (>89) 71 ML/MIN (>89) Urine Ketones TRACE mg/dL (NEG) Urine Urobilinogen 2.0 mg/dL (LESS THAN 2) Urine Mucus FEW /lpf (OCC) Lymphocytes # (Auto) 0.9 TH/MM3 (1.0-4.8) Random Glucose 155 MG/DL (74-106) 150 MG/DL (74-106) Potassium Level 3.4 MEQ/L (3.5-5.1) Albumin 3.3 GM/DL (3.4-5.0) Magnesium Level 2.6 MG/DL (1.5-2.5) Aspartate Amino Transf (AST/SGOT) 14 U/L (15-37) Thyroid Stimulating Hormone 3rd Gen 0.221 uIU/ML (0.358-3.740) Imaging Last Impressions Chest X-Ray 12/18/17 1747 Signed Impressions: CONCLUSION: Advanced thoracic scoliosis. No acute cardiopulmonary findings. Brain MRI 12/18/17 0000 Signed Impressions: CONCLUSION: 1. T2 signal in the periventricular white matter consistent with the patient's known diagnosis of MS. 2. No enhancing plaques identified. No findings to indicate acute infarct are present. 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 PE at Discharge GENERAL: female lying in bed SKIN: No rashes, ecchymoses or lesions. Cool and dry. HEAD: Atraumatic. Normocephalic. No temporal or scalp tenderness. EYES: Pupils equal round and reactive. Extraocular motions intact. No scleral icterus. No injection or drainage. ENT: Nose without bleeding, purulent drainage or septal hematoma. Throat without erythema, tonsillar hypertrophy or exudate. Uvula midline. Airway patent. NECK: Trachea midline. No JVD or lymphadenopathy. Supple, nontender, no meningeal signs. CARDIOVASCULAR: Regular rate and rhythm without murmurs, gallops, or rubs. RESPIRATORY: Clear to auscultation. Breath sounds equal bilaterally. No wheezes , rales, or rhonchi. GASTROINTESTINAL: Abdomen soft, non-tender, nondistended. No hepato-splenomegaly , or palpable masses. No guarding. MUSCULOSKELETAL: Extremities without clubbing, cyanosis, or edema. No joint tenderness, effusion, or edema noted. No calf tenderness. NEUROLOGICAL: Awake and alert. Cranial nerves II through XII intact. Normal speech. Hand director global development and upper extremity strength 5/5. Right lower extremity strength 3/5, unable to lift left lower extremity off the bed. Insight and judgment is good Mood behaviors appropriate Hospital Course 1. MS exacerbation Patient with sudden onset increasing weakness Neurology consulted, appreciate recommendations Solu-Medrol 250 mg every 6 hours x [address] Chaney recommendations MRI reveals: 1. T2 signal in the periventricular white matter consistent with the patient's known diagnosis of MS. 2. No enhancing plaques identified. No findings to indicate acute infarct are present. 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 2. Cough Patient without leukocytosis Tessalon pearls Suspect viral in origin Chest x-ray without acute process, personally reviewed Hypothyroidism home medications Hypertension home medications anxiety and depression home medication GI and DVT prophylaxis FEN Heart healthy diet Electrolytes: Monitor and replete as needed Heparin Pt Condition on Discharge: Stable Discharge Disposition: Rehab Inpatient Discharge Time: > 30 minutes Discharge Instructions DIET: Follow Instructions for: Heart Healthy Diet Activities you can perform: Weight Bearing as Zackery Follow up Referrals: Neurology - 1 Week with Carmelo Leigh Md PCP Follow-up - [address] Fish New Medications: Benzonatate (Tessalon Perles) 100 Mg Cap 200 MG PO TID PRN for COUGH, #10 CAP 0 Refills Methylprednisolone Sod Succinate Inj (Solu-Medrol Inj) 125 Mg/2 Ml Inj 250 MG IV Q6HR for MS for 3 Days, INJECTION 0 Refills Further management per Neurology Pantoprazole (Pantoprazole) 40 Mg Tab 40 MG PO Q12HR for stomach acid for 5 Days, TAB Zonia Looney Dec 20, 2017 11:16
[2017-12-20 11:57] VITALS: BP 142/67; PULSE 68; RESP 16; TEMP 97.5; O2SAT 98
[2017-12-20 13:31] LABS: HEMOGLOBIN A1C 5.4 % (4.3-6.0)
== END 2017-12-20 13:10 | DRG 60 ==
LOC: NEPC 17:08 → NEDA 19:01 → N06A 22:51
PROVIDERS: ADMIT Hospitalist; ATTEND Hospitalist
DX: G35 Multiple sclerosis (principal); I10 Essential (primary) hypertension; J06.9 Acute upper respiratory infection, unspecified; E11.9 Type 2 diabetes mellitus without complications; E78.5 Hyperlipidemia, unspecified; E03.4 Atrophy of thyroid (acquired); R91.1 Solitary pulmonary nodule; M47.24 Other spondylosis with radiculopathy, thoracic region; F32.9 Major depressive disorder, single episode, unspecified; F41.9 Anxiety disorder, unspecified; Z87.891 Personal history of nicotine dependence
CPT/HCPCS: 70553; 71045; 80048; 80053; 81001; 83036; 83735; 84100; 84439; 84443; 85025; 87040; 87493; 87804; 93005; 96374; A9579; J1644; J2930; J7030